=== PATIENT | male | born 1985 | race African-American/Black ===

== ENCOUNTER 2018-12-13 19:22 | Emergency (ER) | payer SELFPAY ==
[~2018-12-13] VITALS: Ht 167.6 cm; Wt 64.0 kg
[2018-12-13 21:11] VITALS: BP 128/70
== END 2018-12-13 21:12 | disposition home or self-care (01) ==
LOC: ER 19:22
DX: F12.229 Cannabis dependence with intoxication, unspecified (principal)
CPT/HCPCS: 99283